=== PATIENT | male | born 1965 | race Caucasian/White ===

== ENCOUNTER 2019-08-26 07:00 | Inpatient (IN) ==
[2019-08-26] MEDS ORDERED: DEXTROSE 50% 25 GM/50 ML VIAL IV PRN (09:09)
[2019-08-26] MEDS ORDERED: GLUCAGON 1 MG VIAL IM PRN (09:09)
[2019-08-26] MEDS ORDERED: MORPHINE 4 MG/1 ML VIAL IV PRN (09:13)
[2019-08-26] MEDS ORDERED: ZALEPLON 5 MG CAPSULE PO PRN (09:14)
[2019-08-26] MEDS ORDERED: NITROGLYCERIN SL 0.4 MG TABLET SL PRN (09:14)
[2019-08-26] MEDS ORDERED: CLORAZEPATE 3.75 MG TABLET PO PRN (09:14)
[2019-08-26] MEDS ORDERED: FAMOTIDINE 20 MG TABLET PO ONE (09:48)
[2019-08-26] MEDS ORDERED: DIAZEPAM 5 MG TABLET PO ONE (09:48)
[2019-08-26 09:57] LABS: Basophils # 0.1 10*3/uL (0.0-0.2); Basophils % 1.2 % (0.0-0.8); Eosinophils # 0.2 10*3/uL (0.0-0.87); Eosinophils % 2.3 % (0.00-10.9); Hematocrit 48.4 VOL% (42.0-52.0); Hemoglobin 16.2 GM/DL (14.0-18.0); Immature Granulocytes % 0.5 %; Immature Granulocytes Absolute 0.04 #; Lymphocytes # 1.9 10*3/uL (1.4-4.0); Lymphocytes % 22.1 % (21.2-54.2); Mean Corpuscular HGB Conc 33.5 GM/DL (32-36); Mean Corpuscular Volume 88.8 FL (87-102); Mean Platelet Volume 9.6 FL (9.6-12.0); Monocytes % 8.2 % (1.7-12.7); Neutrophils % 65.7 % (38.7-73.9); Platelet Count 216 T/CUMM (130-400); Red Blood Count 5.45 MC/CUMM (3.8-5.5); Red Cell Distribution Width 12.5 % (9.3-17.3); White Blood Count 8.6 T/CUMM (4-12)
[2019-08-26] MEDS ORDERED: CEFUROXIME INJ 1,500 MG in SYRINGE 1 EACH IV ONE (10:00)
[2019-08-26 11:05] LABS: Albumin 4.1 G/DL (3.4-5.0); Bilirubin,Total 0.8 MG/DL (0.2-1.0); Calcium 9.2 MG/DL (8.5-10.1); Osmolality,Calculated 267.2 MOS/KG (273-304); Total Protein 8.3 G/DL (6.4-8.3)
[2019-08-26] MEDS: CHLORHEXIDINE 4% SOLN 118 ML BOTTLE TOP SCH ×2 (14:14→20:14)
[2019-08-26] MEDS: CHLORHEXIDINE 0.12% ORAL RINSE 60 ML BOTTLE SWISH/SPIT SCH ×2 (14:14→20:13)
[2019-08-27] MEDS ORDERED: PAPAVERINE 60 MG/2 ML VIAL ONE ×2 (04:20→09:54)
[2019-08-27] MEDS ORDERED: VANCOMYCIN 1,000 MG VIAL ONE (04:20)
[2019-08-27] MEDS ORDERED: VANCOMYCIN 500 MG VIAL ONE (04:20)
[2019-08-27] MEDS: SODIUM CHLORIDE 0.9% 1,000 ML IV SCH ×2 (05:49→11:31)
[2019-08-27] MEDS: CHLORHEXIDINE 0.12% ORAL RINSE 60 ML BOTTLE SWISH/SPIT SCH ×3 (05:54→21:07)
[2019-08-27] MEDS: CHLORHEXIDINE 4% SOLN 118 ML BOTTLE TOP SCH ×2 (05:54→11:30)
[2019-08-27] MEDS ORDERED: CEFUROXIME INJ 1,500 MG in SYRINGE 1 EACH IV ONE (06:00)
[2019-08-27] MEDS ORDERED: FAMOTIDINE 20 MG TABLET PO ONE (06:00)
[2019-08-27] MEDS ORDERED: DIAZEPAM 5 MG TABLET PO ONE (06:00)
[2019-08-27 07:41] LABS: ABG Base Excess 0.5 MMOL/L (-2.5-2.5); ABG HCO3 24.9 MMOL/L (20-26); ABG Oxygen Saturation 99.9 % (95-100); ABG PCO2 37.8 MM HG (35-48); ABG PH 7.422 (7.35-7.45); ABG TCO2 21.1 MMOL/L (23-27); Glucose Heart Surgery 108 MG/DL (74-106); Hematocrit Heart Surgery 43.7 PERCENT (42-52); Hemoglobin Heart Surgery 14.2 G/DL (14.0-18.0); Ionized Calcium Arterial 1.16 MMOL/L (1.21-1.46); PCO2 Patient Temp Arterial 37.8 MMHG; PH Patient Temp Arterial 7.422; Patient Temperature 37 CELCIUS; Potassium Heart/CVR 4.2 MMOL/L (3.5-5.1); Sodium Heart/CVR 136 MMOL/L (135-145)
[2019-08-27 07:55] LABS: Apearance,Urine CLEAR (Clear); Bilirubin,Urine Negative (Negative); Blood, Urine Negative (Negative); Glucose,Urine (UA) Negative (Negative); Ketones,Urine 5 mg/dL (Negative); Mucus,Urine Occasional /LPF (Occasional); Nitrite,Urine Negative (Negative); Protein,Urine Negative; RBC,Urine 3 /HPF (0-4); Urine Color Yellow (Yellow); Urine Urobilinogen < 2.0 EU/DL (0.2-1.0); WBC,Urine 1 /HPF (0-6)
[2019-08-27 09:07] LABS: Hemoglobin Heart Surgery 9.9 G/DL (14.0-18.0); PCO2 Patient Temp Venous 32.2 MM HG; PH Patient Temp Venous 7.474; PO2 Patient Temp Venous 39.9 MM HG; Potassium Heart/CVR 5.3 MMOL/L (3.5-5.1); VBG Base Excess -0.2 MEQ/L (0-4); VBG HCO3 23.3 MEQ/L (24-28); VBG Oxygen Saturation 81.2 %; VBG PCO2 33.6 MMHG (41-51); VBG PH 7.459; VBG PO2 42.8 MMHG (17-40)
[2019-08-27] MEDS ORDERED: HEPARIN/NACL 0.9% 2 UNITS/ML 500 ML IV ONE (09:10)
[2019-08-27] MEDS ORDERED: PHENYLEPHRINE DRIP 20 MG/250 ML PREMIX IV ONE (09:10)
[2019-08-27] MEDS ORDERED: NITROGLYCERIN DRIP 50 MG/250 ML BOTTLE IV ONE (09:10)
[2019-08-27 09:35] LABS: Hematocrit Heart Surgery 34.1 PERCENT (42-52); Hemoglobin Heart Surgery 11.1 G/DL (14.0-18.0); PCO2 Patient Temp Venous 29.6 MM HG; PH Patient Temp Venous 7.506; PO2 Patient Temp Venous 34.3 MM HG; Potassium Heart/CVR 4.8 MMOL/L (3.5-5.1); VBG Oxygen Saturation 81.1 %; VBG PCO2 34.2 MMHG (41-51); VBG PH 7.461; VBG PO2 42.3 MMHG (17-40)
[2019-08-27 10:07] LABS: Hemoglobin Heart Surgery 11.7 G/DL (14.0-18.0); PCO2 Patient Temp Venous 27.6 MM HG; PH Patient Temp Venous 7.528; PO2 Patient Temp Venous 30.4 MM HG; VBG Base Excess 0.2 MEQ/L (0-4); VBG Oxygen Saturation 75.7 %; VBG PCO2 31.5 MMHG (41-51); VBG PH 7.482; VBG PO2 37.6 MMHG (17-40)
[2019-08-27] MEDS ORDERED: POTASSIUM CHLORIDE RIDER 100 ML IV ONE (10:19)
[2019-08-27] MEDS ORDERED: ALBUMIN 5% 12.5 GM/250 ML VIAL IV ONE ×2 (10:19→12:02)
[2019-08-27] MEDS ORDERED: PHENYLEPHRINE DRIP 40 MG/250 ML PREMIX IV ONE (10:19)
[2019-08-27] MEDS ORDERED: THROMBIN TOPICAL (RECOMBINANT) 5,000 UNIT VIAL TOP ONE (10:27)
[2019-08-27 10:44] LABS: Hemoglobin Heart Surgery 11.7 G/DL (14.0-18.0); PCO2 Patient Temp Venous 36.3 MM HG; PH Patient Temp Venous 7.45; PO2 Patient Temp Venous 35.3 MM HG; Potassium Heart/CVR 4.9 MMOL/L (3.5-5.1); VBG Base Excess 1.5 MEQ/L (0-4); VBG HCO3 25.2 MEQ/L (24-28); VBG Oxygen Saturation 70.1 %; VBG PCO2 36.3 MMHG (41-51); VBG PH 7.45; VBG PO2 35.3 MMHG (17-40)
[2019-08-27] MEDS ORDERED: PROTAMINE SULFATE 250 MG/25 ML VIAL IV ONE (10:59)
[2019-08-27] MEDS ORDERED: LIDOCAINE 2% 5 ML VIAL ONE ×2 (10:59→12:02)
[2019-08-27] MEDS ORDERED: MAGNESIUM SULFATE 5 GM/10 ML VIAL IV ONE (10:59)
[2019-08-27] MEDS ORDERED: MANNITOL 100 GM/500 ML BAG IV ONE (10:59)
[2019-08-27] MEDS ORDERED: SODIUM BICARBONATE 50 MEQ/50 ML VIAL IV ONE (10:59)
[2019-08-27] MEDS ORDERED: HEPARIN 10,000 UNIT/10 ML VIAL ONE (10:59)
[2019-08-27] MEDS ORDERED: ALBUMIN 25% 25 GM/100 ML VIAL IV ONE (10:59)
[2019-08-27] MEDS ORDERED: DEXTROSE 5% KCL 20 MEQ 20 MEQ/1,000 ML BAG IV ONE (10:59)
[2019-08-27] MEDS ORDERED: POTASSIUM CHLORIDE 20 MEQ/10 ML VIAL ONE (11:00)
[2019-08-27] MEDS ORDERED: methylPREDNISolone SOD SUC 1,000 MG/8 ML VIAL ONE (11:00)
[2019-08-27] MEDS ORDERED: FUROSEMIDE 20 MG/2 ML VIAL ONE (11:00)
[2019-08-27] MEDS ORDERED: PROTAMINE SULFATE 50 MG/5 ML VIAL IV ONE (11:00)
[2019-08-27 11:06] LABS: ABG Base Excess -0.8 MMOL/L (-2.5-2.5); ABG HCO3 22.8 MMOL/L (20-26); ABG Oxygen Saturation 98.8 % (95-100); ABG PCO2 34.3 MM HG (35-48); ABG PH 7.441 (7.35-7.45); ABG PO2 330.6 MM HG (80-95); ABG TCO2 23.9 MMOL/L (23-27); Glucose Heart Surgery 164 MG/DL (74-106); Hemoglobin Heart Surgery 12.1 G/DL (14.0-18.0); Ionized Calcium Arterial 1.42 MMOL/L (1.21-1.46); PCO2 Patient Temp Arterial 34.3 MMHG; PH Patient Temp Arterial 7.441; PO2 Patient Temp Arterial 330.6 MM HG; Patient Temperature 37 CELCIUS; Sodium Heart/CVR 134 MMOL/L (135-145)
[2019-08-27] MEDS ORDERED: LORazepam 2 MG/1 ML VIAL ONE (11:31)
[2019-08-27] MEDS ORDERED: MIDAZOLAM 2 MG/2 ML VIAL IV PRN (11:44)
[2019-08-27] MEDS ORDERED: MORPHINE 10 MG/1 ML VIAL IV PRN (11:44)
[2019-08-27] MEDS ORDERED: CHLORHEXIDINE 4% SOLN 118 ML BOTTLE TOP PRN (11:44)
[2019-08-27] MEDS ORDERED: MAGNESIUM SULF RIDER 4 GM in PREMIX 1 EACH IV SCH (11:44)
[2019-08-27] MEDS ORDERED: INSULIN REGULAR 100 UNIT/ML IV ONE (11:44)
[2019-08-27] MEDS ORDERED: CALCIUM CHLORIDE 1,000 MG/10 ML SYRINGE IV PRN (11:44)
[2019-08-27] MEDS ORDERED: NITROPRUSSIDE 100 MG in DEXTROSE 5% 250 ML IV PRN (11:44)
[2019-08-27] MEDS ORDERED: VECURONIUM 10 MG VIAL IV PRN ×2 (11:44)
[2019-08-27] MEDS ORDERED: PHENYLEPHRINE DRIP 40 MG/250 ML PREMIX IV PRN (11:44)
[2019-08-27] MEDS ORDERED: MAGNESIUM SULF RIDER 2 GM in PREMIX 1 EACH IV PRN (11:44)
[2019-08-27] MEDS ORDERED: POTASSIUM CHLORIDE RIDER 10 MEQ in PREMIX 1 EACH IV PRN (11:44)
[2019-08-27] MEDS ORDERED: LACTATED RINGERS 250 ML IV PRN (11:44)
[2019-08-27] MEDS ORDERED: MIDAZOLAM 10 MG/2 ML VIAL IV PRN (11:44)
[2019-08-27] MEDS ORDERED: DEXTROSE 10% 250 ML BAG IV PRN ×2 (11:44)
[2019-08-27] MEDS ORDERED: ACETAMINOPHEN 650 MG SUPP RECTAL PRN (11:44)
[2019-08-27] MEDS ORDERED: INSULIN REGULAR 100 UNIT/ML IV PRN (11:44)
[2019-08-27] MEDS ORDERED: POTASSIUM CHLORIDE RIDER 20 MEQ in PREMIX 1 EACH IV PRN (11:44)
[2019-08-27] MEDS ORDERED: SODIUM CHLORIDE 0.45% 1,000 ML IV SCH ×2 (12:00)
[2019-08-27] MEDS ORDERED: INSULIN REGULAR DRIP 100 ML IV SCH (12:00)
[2019-08-27] MEDS ORDERED: CALCIUM CHLORIDE 1,000 MG/10 ML VIAL IV ONE (12:02)
[2019-08-27] MEDS ORDERED: SUFentanil 250 MCG/5 ML AMP ONE (12:02)
[2019-08-27] MEDS ORDERED: SEVOFLURANE 1 UNIT/15 MINUTE INH ONE (12:02)
[2019-08-27] MEDS ORDERED: SODIUM CHLORIDE 0.9% 250 ML IV ONE (12:03)
[2019-08-27] MEDS ORDERED: METOPROLOL TARTRATE 5 MG/5 ML VIAL IV ONE (12:03)
[2019-08-27] MEDS ORDERED: AMINOCAPROIC ACID 5,000 MG/20 ML VIAL ONE (12:03)
[2019-08-27] MEDS ORDERED: PHENYLEPHRINE 1 MG/10 ML SYRINGE IV ONE (12:03)
[2019-08-27] MEDS ORDERED: MIDAZOLAM 10 MG/2 ML VIAL ONE (12:03)
[2019-08-27] MEDS ORDERED: GLYCOPYRROLATE 0.4 MG/2 ML VIAL ONE (12:03)
[2019-08-27] MEDS ORDERED: VECURONIUM 10 MG VIAL IV ONE (12:03)
[2019-08-27] MEDS ORDERED: SODIUM CHLORIDE 0.9% 1,000 ML IV ONE (12:04)
[2019-08-27] MEDS ORDERED: LACTATED RINGERS 1,000 ML IV ONE (12:04)
[2019-08-27] MEDS ORDERED: SODIUM CHLORIDE 0.9% 100 ML IV ONE (12:04)
[2019-08-27] MEDS: LACTATED RINGERS 1,000 ML IV PRN ×2 (12:15→14:25)
[2019-08-27 12:16] LABS: ABG Base Excess -0.5 MMOL/L (-2.5-2.5); ABG Oxygen Saturation 98.7 % (95-100); ABG PCO2 39.2 MM HG (35-48); ABG PH 7.398 (7.35-7.45); ABG TCO2 21.3 MMOL/L (23-27); Glucose Heart Surgery 151 MG/DL (74-106); Hematocrit Heart Surgery 38.3 PERCENT (42-52); Hemoglobin Heart Surgery 12.4 G/DL (14.0-18.0); Potassium Heart/CVR 3.7 MMOL/L (3.5-5.1)
[2019-08-27 12:25] LABS: Basophils # 0.1 10*3/uL (0.0-0.2); Basophils % 0.5 % (0.0-0.8); Eosinophils # 0.1 10*3/uL (0.0-0.87); Eosinophils % 0.7 % (0.00-10.9); Hematocrit 37.1 VOL% (42.0-52.0); Hemoglobin 12.3 GM/DL (14.0-18.0); Immature Granulocytes % 0.6 %; Immature Granulocytes Absolute 0.07 #; Lymphocytes # 0.9 10*3/uL (1.4-4.0); Lymphocytes % 7.2 % (21.2-54.2); Mean Corpuscular HGB Conc 33.2 GM/DL (32-36); Mean Corpuscular Volume 89.8 FL (87-102); Mean Platelet Volume 9.7 FL (9.6-12.0); Monocytes % 5.4 % (1.7-12.7); Neutrophils % 85.6 % (38.7-73.9); Platelet Count 159 T/CUMM (130-400); Red Blood Count 4.13 MC/CUMM (3.8-5.5); Red Cell Distribution Width 12.4 % (9.3-17.3); White Blood Count 12.1 T/CUMM (4-12)
[2019-08-27 12:33] LABS: INR 1.1; PT Patient Result 12.2 SECS (9.8-11.9)
[2019-08-27 12:40] LABS: Albumin 1.6 G/DL (3.4-5.0); Bilirubin,Total 1.1 MG/DL (0.2-1.0); Osmolality,Calculated 284.7 MOS/KG (273-304); Total Protein 6.7 G/DL (6.4-8.3)
[2019-08-27 12:41] LABS: CKMB % 7.8 %
[2019-08-27 12:43] LABS: Troponin I 7.06 NG/ML (0.00-0.045)
[2019-08-27] MEDS ORDERED: LACTATED RINGERS 1,000 ML IV PRN (13:36)
[2019-08-27] MEDS: ALBUMIN 5% 12.5 GM in PREMIX 1 EACH IV PRN ×2 (14:05→19:57)
[2019-08-27] MEDS: MORPHINE 4 MG/1 ML VIAL IV PRN ×2 (16:06→22:40)
[2019-08-27] MEDS: INSULIN REGULAR 100 UNIT/ML SUBCUT SCH ×2 (16:07→20:40)
[2019-08-27] MEDS: CEFUROXIME INJ 1,500 MG in SYRINGE 1 EACH IV SCH (19:33)
[2019-08-27 19:39] LABS: ABG Base Excess -1.6 MMOL/L (-2.5-2.5); ABG Oxygen Saturation 97.7 % (95-100); ABG PCO2 48.3 MM HG (35-48); ABG PH 7.321 (7.35-7.45); ABG TCO2 22.3 MMOL/L (23-27); Glucose Heart Surgery 211 MG/DL (74-106); Hematocrit Heart Surgery 37.5 PERCENT (42-52); Hemoglobin Heart Surgery 12.2 G/DL (14.0-18.0); Potassium Heart/CVR 4.4 MMOL/L (3.5-5.1)
[2019-08-27 20:03] LABS: CKMB % 7.1 %
[2019-08-27 20:04] LABS: Troponin I 5.13 NG/ML (0.00-0.045)
[2019-08-27 21:55] LABS: ABG Base Excess -0.9 MMOL/L (-2.5-2.5); ABG HCO3 23.6 MMOL/L (20-26); ABG Oxygen Saturation 98.4 % (95-100); ABG PCO2 43.4 MM HG (35-48); ABG PH 7.362 (7.35-7.45); ABG TCO2 21.8 MMOL/L (23-27); Glucose Heart Surgery 217 MG/DL (74-106); Hematocrit Heart Surgery 37.9 PERCENT (42-52); Hemoglobin Heart Surgery 12.3 G/DL (14.0-18.0); Potassium Heart/CVR 4.5 MMOL/L (3.5-5.1)
[2019-08-27 23:54] LABS: ABG Base Excess -0.6 MMOL/L (-2.5-2.5); ABG HCO3 23.9 MMOL/L (20-26); ABG Oxygen Saturation 98.1 % (95-100); ABG PCO2 46.9 MM HG (35-48); ABG PH 7.343 (7.35-7.45); ABG TCO2 22.8 MMOL/L (23-27); Glucose Heart Surgery 208 MG/DL (74-106); Hematocrit Heart Surgery 36.8 PERCENT (42-52); Potassium Heart/CVR 4.3 MMOL/L (3.5-5.1)
[2019-08-28] MEDS: INSULIN REGULAR 100 UNIT/ML SUBCUT SCH ×3 (00:45→07:34)
[2019-08-28] MEDS: ONDANSETRON 4 MG/2 ML VIAL IV PRN ×4 (01:33→23:23)
[2019-08-28 03:39] LABS: ABG Base Excess 0.7 MMOL/L (-2.5-2.5); ABG Oxygen Saturation 97.5 % (95-100); ABG PH 7.369 (7.35-7.45); ABG PO2 93.6 MM HG (80-95); Glucose Heart Surgery 182 MG/DL (74-106); Hematocrit Heart Surgery 42.8 PERCENT (42-52); Hemoglobin Heart Surgery 13.9 G/DL (14.0-18.0); Potassium Heart/CVR 4.3 MMOL/L (3.5-5.1)
[2019-08-28 03:48] LABS: Basophils % 0.1 % (0.0-0.8); Hematocrit 34.7 VOL% (42.0-52.0); Hemoglobin 11.4 GM/DL (14.0-18.0); Immature Granulocytes % 0.6 %; Immature Granulocytes Absolute 0.11 #; Lymphocytes # 0.9 10*3/uL (1.4-4.0); Lymphocytes % 5.2 % (21.2-54.2); Mean Corpuscular HGB Conc 32.9 GM/DL (32-36); Mean Corpuscular Volume 91.8 FL (87-102); Mean Platelet Volume 10.3 FL (9.6-12.0); Neutrophils % 86.1 % (38.7-73.9); Platelet Count 185 T/CUMM (130-400); Red Blood Count 3.78 MC/CUMM (3.8-5.5); Red Cell Distribution Width 12.8 % (9.3-17.3); White Blood Count 17.1 T/CUMM (4-12)
[2019-08-28 04:02] LABS: Albumin 3.8 G/DL (3.4-5.0); Bilirubin,Direct 0.15 MG/DL (0.0-0.20); Bilirubin,Total 0.5 MG/DL (0.2-1.0); Calcium 8.3 MG/DL (8.5-10.1); Osmolality,Calculated 284.4 MOS/KG (273-304); Total Protein 6.6 G/DL (6.4-8.3)
[2019-08-28 04:08] LABS: CKMB % 4.8 %
[2019-08-28 04:10] LABS: Troponin I 5.52 NG/ML (0.00-0.045)
[2019-08-28] MEDS ORDERED: PROMETHAZINE INJ 12.5 MG in SODIUM CHLORIDE 0.9% 50 ML IV ONE (06:38)
[2019-08-28] MEDS ORDERED: METOCLOPRAMIDE 10 MG/2 ML VIAL IV ONE (06:38)
[2019-08-28] MEDS ORDERED: PROMETHAZINE 25 MG/1 ML VIAL ONE (07:00)
[2019-08-28] MEDS: MORPHINE 4 MG/1 ML VIAL IV PRN ×4 (07:33→23:23)
[2019-08-28] MEDS: CEFUROXIME INJ 1,500 MG in SYRINGE 1 EACH IV SCH ×2 (07:34→20:23)
[2019-08-28] MEDS: CHLORHEXIDINE 0.12% ORAL RINSE 60 ML BOTTLE SWISH/SPIT SCH ×3 (08:28→23:01)
[2019-08-28] MEDS ORDERED: ACETAMINOPHEN 325 MG TABLET PO PRN (10:23)
[2019-08-28] MEDS ORDERED: DEXTROSE 10% 250 ML BAG IV PRN (10:23)
[2019-08-28] MEDS ORDERED: GLUCAGON 1 MG VIAL IM PRN (10:23)
[2019-08-28] MEDS ORDERED: MAGNESIUM SULF RIDER 4 GM in PREMIX 1 EACH IV PRN (10:23)
[2019-08-28] MEDS ORDERED: MAGNESIUM HYDROXIDE SUSP 30 ML UDCUP PO PRN (10:23)
[2019-08-28] MEDS ORDERED: ALUMINUM/MAGNES/SIMETH MAX STR 30 ML UDCUP PO PRN (10:23)
[2019-08-28] MEDS ORDERED: ZALEPLON 5 MG CAPSULE PO PRN (10:23)
[2019-08-28] MEDS ORDERED: MAGNESIUM SULF RIDER 2 GM in PREMIX 1 EACH IV PRN (10:23)
[2019-08-28] MEDS ORDERED: SODIUM CHLOR 0.45% KCL 20 MEQ 20 MEQ/1,000 ML BAG IV SCH (10:23)
[2019-08-28] MEDS: FERROUS SULFATE 325 MG TABLET PO SCH (10:38)
[2019-08-28] MEDS: ASPIRIN EC 325 MG TABLET PO SCH (10:38)
[2019-08-28] MEDS: DOCUSATE SODIUM 100 MG CAPSULE PO SCH (10:38)
[2019-08-28] MEDS: PANTOPRAZOLE 40 MG TABLET PO SCH (10:38)
[2019-08-28] MEDS ORDERED: PROMETHAZINE INJ 12.5 MG in SODIUM CHLORIDE 0.9% 50 ML IV PRN (13:07)
[2019-08-28] MEDS ORDERED: METOCLOPRAMIDE 10 MG/2 ML VIAL IV PRN (13:10)
[2019-08-28 13:31] LABS: CKMB % 2.9 %; Troponin I 3.46 NG/ML (0.00-0.045)
[2019-08-28] MEDS ORDERED: chlorproMAZINE INJ 25 MG in SODIUM CHLORIDE 0.9% 100 ML IV PRN (16:40)
[2019-08-28] MEDS: ROSUVASTATIN 20 MG TABLET PO SCH (23:00)
[2019-08-29 05:51] LABS: Basophils % 0.1 % (0.0-0.8); Hematocrit 30.9 VOL% (42.0-52.0); Hemoglobin 9.9 GM/DL (14.0-18.0); Immature Granulocytes % 0.6 %; Immature Granulocytes Absolute 0.13 #; Lymphocytes # 1.5 10*3/uL (1.4-4.0); Lymphocytes % 7.2 % (21.2-54.2); Mean Corpuscular Volume 92.2 FL (87-102); Mean Platelet Volume 10.7 FL (9.6-12.0); Monocytes % 9.5 % (1.7-12.7); Neutrophils % 82.6 % (38.7-73.9); Platelet Count 158 T/CUMM (130-400); Red Blood Count 3.35 MC/CUMM (3.8-5.5); Red Cell Distribution Width 12.9 % (9.3-17.3); White Blood Count 20.8 T/CUMM (4-12)
[2019-08-29] MEDS ORDERED: FUROSEMIDE 40 MG/4 ML VIAL IV ONE (06:00)
[2019-08-29 06:15] LABS: Albumin 3.4 G/DL (3.4-5.0); Bilirubin,Direct 0.16 MG/DL (0.0-0.20); Bilirubin,Total 0.6 MG/DL (0.2-1.0); Calcium 8.2 MG/DL (8.5-10.1); Total Protein 6.3 G/DL (6.4-8.3)
[2019-08-29 06:26] LABS: Alanine Aminotransferase 21 U/L (16-61); Albumin 3.4 G/DL (3.4-5.0); Alkaline Phosphatase 48 U/L (45-117); Aspartate Amino Transferase 24 U/L (0-37); Bilirubin,Indirect 0.3 MG/DL (0.0-1.0)
[2019-08-29 06:42] LABS: Hypochromasia Slight; Lymphocytes 4 % (20-55); Microcytosis Slight; Platelet Estimate Adequate; Segmented Neutrophils 86 % (50-85); Total Cells Counted 100
[2019-08-29] MEDS: FERROUS SULFATE 325 MG TABLET PO SCH (09:15)
[2019-08-29] MEDS: ASPIRIN EC 325 MG TABLET PO SCH (09:16)
[2019-08-29] MEDS: DOCUSATE SODIUM 100 MG CAPSULE PO SCH (09:16)
[2019-08-29] MEDS: PANTOPRAZOLE 40 MG TABLET PO SCH (09:16)
[2019-08-29] MEDS: CHLORHEXIDINE 0.12% ORAL RINSE 60 ML BOTTLE SWISH/SPIT SCH ×2 (09:17→21:36)
[2019-08-29] MEDS: carvediloL 3.125 MG TABLET PO SCH (21:36)
[2019-08-29] MEDS: ROSUVASTATIN 20 MG TABLET PO SCH (21:36)
[2019-08-30] MEDS: MORPHINE 4 MG/1 ML VIAL IV PRN (01:40)
[2019-08-30] MEDS: KETOROLAC 30 MG/1 ML VIAL IV PRN ×2 (03:35→21:05)
[2019-08-30 05:29] LABS: Basophils % 0.2 % (0.0-0.8); Eosinophils # 0.1 10*3/uL (0.0-0.87); Eosinophils % 0.4 % (0.00-10.9); Hematocrit 31.1 VOL% (42.0-52.0); Hemoglobin 10.3 GM/DL (14.0-18.0); Immature Granulocytes % 0.6 %; Immature Granulocytes Absolute 0.09 #; Lymphocytes # 2.9 10*3/uL (1.4-4.0); Mean Corpuscular HGB Conc 33.1 GM/DL (32-36); Mean Corpuscular Volume 89.9 FL (87-102); Mean Platelet Volume 10.3 FL (9.6-12.0); Monocytes % 12.6 % (1.7-12.7); Neutrophils % 68.2 % (38.7-73.9); Platelet Count 163 T/CUMM (130-400); Red Blood Count 3.46 MC/CUMM (3.8-5.5); Red Cell Distribution Width 12.8 % (9.3-17.3); White Blood Count 15.9 T/CUMM (4-12)
[2019-08-30 06:26] LABS: Alanine Aminotransferase 25 U/L (16-61); Albumin 3.2 G/DL (3.4-5.0); Albumin 3.4 G/DL (3.4-5.0); Alkaline Phosphatase 55 U/L (45-117); Aspartate Amino Transferase 21 U/L (0-37); Bilirubin,Direct 0.2 MG/DL (0.0-0.20); Bilirubin,Indirect 0.8 MG/DL (0.0-1.0); Bilirubin,Total 0.6 MG/DL (0.2-1.0); Calcium 8.2 MG/DL (8.5-10.1); Osmolality,Calculated 269.2 MOS/KG (273-304); Total Protein 6.3 G/DL (6.4-8.3)
[2019-08-30] MEDS: PANTOPRAZOLE 40 MG TABLET PO SCH (09:26)
[2019-08-30] MEDS: ASPIRIN EC 325 MG TABLET PO SCH (09:26)
[2019-08-30] MEDS: FERROUS SULFATE 325 MG TABLET PO SCH (09:26)
[2019-08-30] MEDS: DOCUSATE SODIUM 100 MG CAPSULE PO SCH (09:26)
[2019-08-30] MEDS: carvediloL 3.125 MG TABLET PO SCH ×2 (09:26→21:05)
[2019-08-30] MEDS: POTASSIUM CHLORIDE 20 MEQ TABLET PO PRN ×2 (09:26→10:30)
[2019-08-30] MEDS: CHLORHEXIDINE 0.12% ORAL RINSE 60 ML BOTTLE SWISH/SPIT SCH ×2 (09:30→21:08)
[2019-08-30] MEDS: LINACLOTIDE 145 MCG CAPSULE PO SCH (09:36)
[2019-08-30] MEDS: ROSUVASTATIN 20 MG TABLET PO SCH (21:05)
[2019-08-31 06:33] LABS: Basophils % 0.3 % (0.0-0.8); Eosinophils # 0.3 10*3/uL (0.0-0.87); Eosinophils % 2.3 % (0.00-10.9); Hematocrit 31.5 VOL% (42.0-52.0); Hemoglobin 10.3 GM/DL (14.0-18.0); Immature Granulocytes % 0.6 %; Immature Granulocytes Absolute 0.07 #; Lymphocytes # 2.5 10*3/uL (1.4-4.0); Lymphocytes % 20.6 % (21.2-54.2); Mean Corpuscular HGB Conc 32.7 GM/DL (32-36); Mean Platelet Volume 10.6 FL (9.6-12.0); Monocytes % 11.5 % (1.7-12.7); Neutrophils % 64.7 % (38.7-73.9); Platelet Count 192 T/CUMM (130-400); Red Cell Distribution Width 12.9 % (9.3-17.3); White Blood Count 11.9 T/CUMM (4-12)
[2019-08-31 06:40] LABS: Calcium 8.4 MG/DL (8.5-10.1)
[2019-08-31] MEDS ORDERED: oxyCODONE/ACETAMINOPHEN 5-325 MG TABLET PO PRN (08:57)
[2019-08-31] MEDS: carvediloL 3.125 MG TABLET PO SCH ×2 (09:07→20:52)
[2019-08-31] MEDS: PANTOPRAZOLE 40 MG TABLET PO SCH (09:07)
[2019-08-31] MEDS: FERROUS SULFATE 325 MG TABLET PO SCH (09:07)
[2019-08-31] MEDS: ASPIRIN EC 325 MG TABLET PO SCH (09:07)
[2019-08-31] MEDS: DOCUSATE SODIUM 100 MG CAPSULE PO SCH (09:07)
[2019-08-31] MEDS: POTASSIUM CHLORIDE 20 MEQ TABLET PO PRN ×2 (09:07→10:09)
[2019-08-31] MEDS: CHLORHEXIDINE 0.12% ORAL RINSE 60 ML BOTTLE SWISH/SPIT SCH ×2 (09:08→20:53)
[2019-08-31] MEDS: LINACLOTIDE 145 MCG CAPSULE PO SCH (09:08)
[2019-08-31] MEDS: oxyCODONE/ACETAMINOPHEN 5-325 MG TABLET PO PRN ×3 (10:39→23:23)
[2019-08-31] MEDS: ONDANSETRON 4 MG/2 ML VIAL IV PRN (11:33)
[2019-08-31] MEDS: ROSUVASTATIN 20 MG TABLET PO SCH (20:52)
[2019-09-01 05:46] LABS: Basophils % 0.4 % (0.0-0.8); Eosinophils # 0.6 10*3/uL (0.0-0.87); Eosinophils % 5.2 % (0.00-10.9); Hematocrit 31.3 VOL% (42.0-52.0); Hemoglobin 10.3 GM/DL (14.0-18.0); Immature Granulocytes % 0.6 %; Immature Granulocytes Absolute 0.07 #; Lymphocytes # 2.6 10*3/uL (1.4-4.0); Lymphocytes % 23.7 % (21.2-54.2); Mean Corpuscular HGB Conc 32.9 GM/DL (32-36); Mean Corpuscular Volume 91.5 FL (87-102); Monocytes % 11.4 % (1.7-12.7); Neutrophils % 58.7 % (38.7-73.9); Platelet Count 219 T/CUMM (130-400); Red Blood Count 3.42 MC/CUMM (3.8-5.5); Red Cell Distribution Width 12.7 % (9.3-17.3)
[2019-09-01 06:14] LABS: Alanine Aminotransferase 159 U/L (16-61); Albumin 2.9 G/DL (3.4-5.0); Alkaline Phosphatase 78 U/L (45-117); Aspartate Amino Transferase 70 U/L (0-37); Bilirubin,Indirect 0.4 MG/DL (0.0-1.0); Blood Urea Nitrogen 16 MG/DL (7-18); Calcium 8.3 MG/DL (8.5-10.1); Estimated Glom Filtration Rate 129 ML/MIN; Glucose 84 MG/DL (74-106); Osmolality,Calculated 267.2 MOS/KG (273-304); Total Protein 6.3 G/DL (6.4-8.3)
[2019-09-01 06:19] LABS: Troponin I 0.373 NG/ML (0.00-0.045)
[2019-09-01] MEDS: carvediloL 3.125 MG TABLET PO SCH (08:33)
[2019-09-01] MEDS: PANTOPRAZOLE 40 MG TABLET PO SCH (08:33)
[2019-09-01] MEDS: DOCUSATE SODIUM 100 MG CAPSULE PO SCH (08:33)
[2019-09-01] MEDS: FERROUS SULFATE 325 MG TABLET PO SCH (08:33)
[2019-09-01] MEDS: ASPIRIN EC 325 MG TABLET PO SCH (08:33)
[2019-09-01] MEDS: CHLORHEXIDINE 0.12% ORAL RINSE 60 ML BOTTLE SWISH/SPIT SCH (08:34)
[2019-09-01] MEDS: LINACLOTIDE 145 MCG CAPSULE PO SCH (08:34)
[2019-09-01] MEDS: ONDANSETRON 4 MG/2 ML VIAL IV PRN (10:12)
[2019-09-01 11:55] VITALS: BP 135/78
== END 2019-09-01 13:05 | disposition home health service (06) | DRG 236 ==
LOC: N.4E 09:04 → SUPCPDRO 09:04 → N.CVR 08-27 11:40 → N.TELES 08-28 11:56